=== PATIENT | female | born 1945 | race Caucasian/White ===

== ENCOUNTER 2021-03-27 01:48 | Inpatient (IN) ==
[2021-03-27] MEDS ORDERED: methylPREDNISolone 125 MG/2 ML VIAL IVP ONE (01:56)
[2021-03-27] MEDS ORDERED: Ipratropium/Albuterol Neb 3 ML ONE (01:56)
[2021-03-27] MEDS ORDERED: Ipratropium/Albuterol Neb 3 ML IH ONE (01:56)
[2021-03-27] MEDS ORDERED: Albuterol 2.5 MG/3 ML NEBULIZER ONE (02:11)
[2021-03-27 02:14] LABS: Basophils # 0.1 K/mcL (0.0-0.2); Basophils % 0.5 %; Eosinophils # 0.5 K/mcL (0.0-0.6); Eosinophils % 2.3 %; Hematocrit 39.3 % (35.3-44.9); Hemoglobin 11.5 g/dL (11.5-15.4); Immature Granulocytes % 0.6 % (0-4); Lymphocytes # 2.6 K/mcL (0.6-4.6); Lymphocytes % 12.5 %; Mean Corpuscular HGB Conc 29.3 g/dL (31.6-35.5); Mean Corpuscular Hemoglobin 26.4 pg (28.0-33.3); Mean Corpuscular Volume 90.3 fL (83.0-100.0); Mean Platelet Volume 10.3 fL (9.4-12.4); Monocytes # 2.2 K/mcL (0.0-1.3); Monocytes % 10.4 %; Neutrophils # 15.5 K/mcL (1.6-8.9); Platelet Count 259 K/mcL (140-400); Red Blood Count 4.35 M/mcL (3.82-4.97); Red Cell Distribution Width 17.8 % (11.5-14.5); Segmented Neutrophils % 73.7 %; White Blood Count 21.1 K/mcL (4.3-11.1)
[2021-03-27] MEDS ORDERED: Albuterol 2.5 MG/3 ML NEBULIZER IH ONE (02:24)
[2021-03-27] MEDS ORDERED: Vancomycin 1,500 MG/265 ML IV.SOLN IVPB ONE (02:34)
[2021-03-27] MEDS ORDERED: Piperacillin/Tazobactam 3.375 GM in 0.9 % Sodium Chloride Mini Bag 100 ML IVPB ONE (02:34)
[2021-03-27] MEDS ORDERED: Azithromycin 500 MG in 0.9 % Sodium Chloride 250 ML IVPB ONE (02:35)
[2021-03-27 02:43] LABS: VBG HCO3 32 mEq/L (21-27); VBG PCO2 99 mmHg (41-51); VBG PH 7.12 pH Units (7.32-7.42); VBG PO2 152 mmHg (25-50)
[2021-03-27 02:45] LABS: Troponin I 0.04 ng/mL (< 0.04)
[2021-03-27 02:51] LABS: Bilirubin,Urine Negative (Negative); Blood,Urine Moderate (Negative); Clarity,Urine Clear (Clear); Color,Urine Yellow (Yellow); Glucose,Urine (UA) Normal (Normal); Hyaline Casts,Urine Many per lpf (None Seen); Ketones,Urine Negative (Negative); Leukocyte Esterase,Urine Negative (Negative); Mucus,Urine Few per lpf (None-Few); Nitrite,Urine Negative (Negative); PH,Urine 5.5 pH Units (5.0-8.0); Protein,Urine 50 mg/dL (Neg-Trace); RBC,Urine 50-100 per hpf (0-3); Specific Gravity,Urine 1.019 (1.010-1.025); Squamous Epithelial Cell,Urine Few per hpf (None-Few); Urobilinogen,Urine Normal (Normal); WBC,Urine 0-3 per hpf (0-3)
[2021-03-27] MEDS ORDERED: Albuterol Neb 1.25 MG/3 ML VIAL IH ONE (03:01)
[2021-03-27 03:05] LABS: INR 1.2; Prothrombin Time 13.5 Seconds (9.4-12.1)
[2021-03-27 03:08] LABS: Activated Partial Thrombo Time 30.9 Seconds (26.0-36.0)
[2021-03-27] MEDS ORDERED: Albuterol Neb 1.25 MG/3 ML VIAL ONE (03:14)
[2021-03-27 03:23] LABS: Adenovirus Not Detected (Not Detect); Bordetella Pertussis Not Detected (Not Detect); Chlamydophila pneumoniae Not Detected (Not Detect); Coronavirus 229E Not Detected (Not Detect); Coronavirus HKU1 Not Detected (Not Detect); Coronavirus NL63 Not Detected (Not Detect); Coronavirus OC43 Not Detected (Not Detect); Human Metapneumovirus Not Detected (Not Detect); Human Rhinovirus/Enterovirus Not Detected (Not Detect); Influenza A Subtype 2009 H1 Not Detected (Not Detect); Influenza B Not Detected (Not Detect); Mycoplasma pneumoniae Not Detected (Not Detect); Parainfluenza Virus 1 Not Detected (Not Detect); Parainfluenza Virus 2 Not Detected (Not Detect); Parainfluenza Virus 3 Not Detected (Not Detect); Parainfluenza Virus 4 Not Detected (Not Detect); Respiratory Syncytial Virus Not Detected (Not Detect); SARS-CoV-2 Not Detected (Not Detect)
[2021-03-27 03:25] LABS: Alanine Aminotransferase 24 Units/L (7-52); Albumin 4.2 g/dL (3.5-5.7); Albumin/Globulin Ratio 1.2 (1.1-2.2); Alkaline Phosphatase 86 Units/L (34-104); Aspartate Amino Transferase 28 Units/L (13-39); BUN/Creatinine Ratio 21 (6-26); Bilirubin,Direct 0.1 mg/dL (0.0-0.2); Bilirubin,Indirect 0.3 mg/dL (0.0-1.0); Bilirubin,Total 0.4 mg/dL (0.3-1.0); Blood Urea Nitrogen 21 mg/dL (8-23); Calcium 9.9 mg/dL (8.6-10.3); Carbon Dioxide 32 mEq/L (23-29); Chloride 101 mEq/L (98-107); Globulin 3.6 g/dL (2.4-3.5); Glucose 264 mg/dL (70-105); Magnesium 2.1 mg/dL (1.6-2.6); Osmolality,Calculated 302 (280-300); Phosphorous 7.5 mg/dL (2.7-4.5); Potassium 4.5 mEq/L (3.5-5.1); Sodium 140 mEq/L (136-145); Total Protein 7.8 g/dL (6.4-8.9); eGFR For African Americans > 60 (> 60); eGFR For Non-African Americans 53 (> 60)
[2021-03-27 03:29] LABS: VBG HCO3 33 mEq/L (21-27); VBG PCO2 86 mmHg (41-51); VBG PH 7.19 pH Units (7.32-7.42); VBG PO2 93 mmHg (25-50)
[2021-03-27] MEDS ORDERED: Isovue-370 500 ML BOTTLE IVP ONE (04:25)
[2021-03-27] MEDS ORDERED: Melatonin 3 MG TABLET PO PRN (05:35)
[2021-03-27] MEDS ORDERED: *HR* Promethazine 25 MG/ML VIAL IM PRN (05:35)
[2021-03-27] MEDS ORDERED: Ondansetron 4 MG/2 ML VIAL IVP PRN (05:35)
[2021-03-27] MEDS ORDERED: Naloxone 0.4 MG/ML INJ IVP PRN ×2 (05:35→11:38)
[2021-03-27] MEDS ORDERED: Ipratropium/Albuterol Neb 3 ML IH PRN (05:37)
[2021-03-27] MEDS: Ipratropium/Albuterol Neb 3 ML IH SCH ×5 (07:32→23:04)
[2021-03-27] MEDS: MethylPREDNISolone 40 MG/ML VIAL IVP SCH ×3 (08:46→23:44)
[2021-03-27] MEDS ORDERED: Perflutren Lipid Microsphere 1.3 ML in 0.9 % Sodium Chloride 8.7 ML IVP PRN ×2 (11:50→13:45)
[2021-03-27] MEDS ORDERED: cefTRIAXone 1,000 MG in Water for inj. (sterile) 10 ML IVP SCH (12:00)
[2021-03-27] MEDS ORDERED: Nitroglycerin 0.4 MG TAB.SUBL SL PRN (14:21)
[2021-03-27] MEDS: Apixaban 5 MG TABLET PO SCH (21:08)
[2021-03-27] MEDS ORDERED: Acetaminophen 325 MG TABLET PO PRN (21:15)
[2021-03-28 01:21] LABS: Basophils % 0.1 %; Hematocrit 31.7 % (35.3-44.9); Hemoglobin 9.5 g/dL (11.5-15.4); Immature Granulocytes % 0.7 % (0-4); Lymphocytes # 0.5 K/mcL (0.6-4.6); Lymphocytes % 2.5 %; Mean Corpuscular Hemoglobin 26.8 pg (28.0-33.3); Mean Corpuscular Volume 89.5 fL (83.0-100.0); Monocytes # 0.5 K/mcL (0.0-1.3); Monocytes % 2.5 %; Neutrophils # 19.7 K/mcL (1.6-8.9); Nucleated Red Blood Cells 0.1 /100 WBC (0); Platelet Count 183 K/mcL (140-400); Red Blood Count 3.54 M/mcL (3.82-4.97); Red Cell Distribution Width 17.7 % (11.5-14.5); Segmented Neutrophils % 94.2 %; White Blood Count 20.9 K/mcL (4.3-11.1)
[2021-03-28 01:31] LABS: BUN/Creatinine Ratio 25 (6-26); Blood Urea Nitrogen 23 mg/dL (8-23); Calcium 9.5 mg/dL (8.6-10.3); Carbon Dioxide 31 mEq/L (23-29); Chloride 103 mEq/L (98-107); Glucose 128 mg/dL (70-105); Osmolality,Calculated 295 (280-300); Potassium 5.5 mEq/L (3.5-5.1); Sodium 140 mEq/L (136-145); eGFR For African Americans > 60 (> 60); eGFR For Non-African Americans > 60 (> 60)
[2021-03-28 01:32] LABS: Chol/HDL Ratio 1.8 (0-4.9)
[2021-03-28] MEDS: Ipratropium/Albuterol Neb 3 ML IH SCH ×2 (03:54→07:49)
[2021-03-28 08:00] LABS: Phosphorous 3.7 mg/dL (2.7-4.5)
[2021-03-28] MEDS: MethylPREDNISolone 40 MG/ML VIAL IVP SCH (09:49)
[2021-03-28] MEDS: Apixaban 5 MG TABLET PO SCH ×2 (11:07→19:34)
[2021-03-28] MEDS: Aspirin 81 MG TAB.CHEW PO SCH (11:07)
[2021-03-28] MEDS ORDERED: Furosemide 40 MG/4 ML VIAL IVP SCH (11:15)
[2021-03-28 11:57] LABS: VBG HCO3 32 mEq/L (21-27); VBG PCO2 68 mmHg (41-51); VBG PH 7.28 pH Units (7.32-7.42); VBG PO2 90 mmHg (25-50)
[2021-03-28] MEDS: *HR* Amiodarone 200 MG TABLET PO SCH (12:34)
[2021-03-28] MEDS: Furosemide 40 MG/4 ML VIAL IVP SCH (19:34)
[2021-03-28 22:36] LABS: Acinetobacter baumannii by PCR Not Detected (Not Detect); Enterobacteriaceae by PCR Not Detected (Not Detect); Enterococcus by PCR Not Detected (Not Detect); Staphylococcus aureus by PCR Not Detected (Not Detect); Staphylococcus by PCR Not Detected (Not Detect); Streptococcus agalactiae(B)PCR Not Detected (Not Detect); Streptococcus by PCR Not Detected (Not Detect); Streptococcus pneumoniae PCR Not Detected (Not Detect); Streptococcus pyogenes (A) PCR Not Detected (Not Detect); mecA Methicillin-Resist Gene Not Detected (Not Detect); vanA/B Vancomycin-Resist Genes Not Detected (Not Detect)
[2021-03-28 22:37] LABS: Candida albicans by PCR Not Detected (Not Detect); Candida glabrata by PCR Not Detected (Not Detect); Candida krusei by PCR Not Detected (Not Detect); Candida parapsilosis by PCR Not Detected (Not Detect); Candida tropicalis by PCR Not Detected (Not Detect); Enterobacter cloacae Cmplx PCR Not Detected (Not Detect); Escherichia coli by PCR Not Detected (Not Detect); Klebsiella oxytoca by PCR Not Detected (Not Detect); Klebsiella pneumoniae by PCR Not Detected (Not Detect); Proteus by PCR Not Detected (Not Detect); Pseudomonas aeruginosa by PCR Not Detected (Not Detect); Serratia marcescens by PCR Not Detected (Not Detect)
[2021-03-29 01:49] LABS: Hemoglobin 9.2 g/dL (11.5-15.4)
[2021-03-29 01:51] LABS: Hematocrit 29.9 % (35.3-44.9); Mean Corpuscular HGB Conc 30.8 g/dL (31.6-35.5); Mean Corpuscular Hemoglobin 27.1 pg (28.0-33.3); Mean Corpuscular Volume 88.2 fL (83.0-100.0); Mean Platelet Volume 10.1 fL (9.4-12.4); Platelet Count 210 K/mcL (140-400); Red Blood Count 3.39 M/mcL (3.82-4.97); Red Cell Distribution Width 17.8 % (11.5-14.5); White Blood Count 25.4 K/mcL (4.3-11.1)
[2021-03-29 02:10] LABS: VBG HCO3 30 mEq/L (21-27); VBG PCO2 46 mmHg (41-51); VBG PH 7.42 pH Units (7.32-7.42); VBG PO2 209 mmHg (25-50)
[2021-03-29 02:10] LABS: BUN/Creatinine Ratio 38 (6-26); Blood Urea Nitrogen 39 mg/dL (8-23); Calcium 8.5 mg/dL (8.6-10.3); Carbon Dioxide 31 mEq/L (23-29); Chloride 101 mEq/L (98-107); Glucose 127 mg/dL (70-105); Osmolality,Calculated 295 (280-300); Potassium 4.7 mEq/L (3.5-5.1); Sodium 137 mEq/L (136-145); eGFR For African Americans > 60 (> 60); eGFR For Non-African Americans 52 (> 60)
[2021-03-29] MEDS: Apixaban 5 MG TABLET PO SCH ×2 (07:54→21:58)
[2021-03-29] MEDS: Aspirin 81 MG TAB.CHEW PO SCH (07:54)
[2021-03-29] MEDS: Furosemide 40 MG/4 ML VIAL IVP SCH (07:54)
[2021-03-29] MEDS: *HR* Amiodarone 200 MG TABLET PO SCH (07:54)
[2021-03-29] MEDS: Furosemide 20 MG/2 ML VIAL IVP SCH (16:25)
[2021-03-30 02:29] LABS: Hematocrit 31.8 % (35.3-44.9); Hemoglobin 9.3 g/dL (11.5-15.4); Mean Corpuscular HGB Conc 29.2 g/dL (31.6-35.5); Mean Corpuscular Hemoglobin 26.4 pg (28.0-33.3); Mean Corpuscular Volume 90.3 fL (83.0-100.0); Mean Platelet Volume 10.6 fL (9.4-12.4); Platelet Count 232 K/mcL (140-400); Red Blood Count 3.52 M/mcL (3.82-4.97); Red Cell Distribution Width 18.1 % (11.5-14.5); White Blood Count 20.7 K/mcL (4.3-11.1)
[2021-03-30 02:50] LABS: BUN/Creatinine Ratio 40 (6-26); Blood Urea Nitrogen 43 mg/dL (8-23); Calcium 8.3 mg/dL (8.6-10.3); Carbon Dioxide 33 mEq/L (23-29); Chloride 102 mEq/L (98-107); Glucose 96 mg/dL (70-105); Osmolality,Calculated 299 (280-300); Potassium 4.3 mEq/L (3.5-5.1); Sodium 139 mEq/L (136-145); eGFR For African Americans > 60 (> 60); eGFR For Non-African Americans 50 (> 60)
[2021-03-30] MEDS: Apixaban 5 MG TABLET PO SCH ×2 (07:16→22:23)
[2021-03-30] MEDS: Aspirin 81 MG TAB.CHEW PO SCH (07:16)
[2021-03-30] MEDS: *HR* Amiodarone 200 MG TABLET PO SCH (07:16)
[2021-03-30] MEDS: Furosemide 20 MG/2 ML VIAL IVP SCH (07:17)
[2021-03-31 01:36] LABS: Hematocrit 29.8 % (35.3-44.9); Hemoglobin 8.8 g/dL (11.5-15.4); Mean Corpuscular HGB Conc 29.5 g/dL (31.6-35.5); Mean Corpuscular Hemoglobin 26.6 pg (28.0-33.3); Mean Platelet Volume 10.7 fL (9.4-12.4); Platelet Count 196 K/mcL (140-400); Red Blood Count 3.31 M/mcL (3.82-4.97); Red Cell Distribution Width 17.6 % (11.5-14.5)
[2021-03-31 01:37] LABS: White Blood Count 9.9 K/mcL (4.3-11.1)
[2021-03-31 01:54] LABS: BUN/Creatinine Ratio 49 (6-26); Blood Urea Nitrogen 35 mg/dL (8-23); Calcium 8.2 mg/dL (8.6-10.3); Carbon Dioxide 32 mEq/L (23-29); Chloride 103 mEq/L (98-107); Glucose 125 mg/dL (70-105); Osmolality,Calculated 297 (280-300); Sodium 139 mEq/L (136-145); eGFR For African Americans > 60 (> 60); eGFR For Non-African Americans > 60 (> 60)
[2021-03-31 06:36] VITALS: BP 123/74; PULSE 59; TEMP 97.6; O2SAT 98
[2021-03-31] MEDS: *HR* Amiodarone 200 MG TABLET PO SCH (08:22)
[2021-03-31] MEDS: Aspirin 81 MG TAB.CHEW PO SCH (08:22)
[2021-03-31] MEDS: Apixaban 5 MG TABLET PO SCH (08:22)
[2021-03-31] MEDS ORDERED: Furosemide 20 MG TABLET PO SCH (09:00)
== END 2021-03-31 11:58 | disposition home or self-care (01) | DRG 291 ==
LOC: EMEROOARM 01:48 → 2NNU 01:48 → SUATTDRO 14:16 → 3NENU 03-29 13:03
PROVIDERS: ADMIT Internal Medicine; ATTEND Internal Medicine